=== PATIENT | female | born 1950 | race Caucasian/White ===

== ENCOUNTER 2018-01-22 00:24 | Outpatient (CLI) | payer MEDICARE, BC, SELFPAY ==
--- NOTE | 2018-01-22 14:52 | DI.RAD_ITS ---
SYMPTOMS/DIAGNOSIS: PREVENTATIVE CARE, Z00.00, ASYMPTOMATIC POSTMENOPAUSAL STATUS, Z78.0 DEXA SCAN WITH COLBY: The COLBY image shows no evidence of compression fractures. The bone mineral density measurements of the lumbar spine correspond to a total T score of -1.7, consistent with osteopenia. The bone mineral density measurements of the left hip correspond to a total T score of -1.1 and a femoral T score of -1.8, consistent with osteopenia. The left forearm bone mineral density measurements correspond to a total T score of -0.4 and a T score of the distal third of -0.9, in the normal range. IMPRESSION: Osteopenia of the lumbar spine and left hip. Normal bone mineral density of the left forearm.
--- NOTE | 2018-01-22 15:28 | DI.MAMMO_ITS ---
SYMPTOMS/DIAGNOSIS: SCREENING, Z12.39 MAMMOGRAMS: Mammograms were interpreted according to the usual protocol including computer analysis with CAD system, tomosynthesis and C view imaging. Comparison is with the prior examinations. No suspicious masses or microcalcifications are seen. There has been no significant change compared to the prior examinations. IMPRESSION: No definite evidence for malignancy. Yearly mammography is recommended. Category 1. Breast density C. MQSA ASSESSMENT OF FINDINGS: Negative. Category 1. Patient will receive a letter notifying them of these results. Bi-RADS category C. The breasts are heterogeneously dense, which may obscure small masses.
== END 2018-01-22 00:44 ==
PROVIDERS: PCP Family Medicine; Visit Provider Family Medicine
DX: Z12.31 Encounter for screening mammogram for malignant neoplasm of breast (principal); M85.88 Other specified disorders of bone density and structure, other site; Z78.0 Asymptomatic menopausal state
CPT/HCPCS: 77063; 77067; 77080

== ENCOUNTER 2018-11-29 11:34 | Outpatient (REF) | payer OTHER, MEDICARE, SELFPAY ==
--- NOTE | 2018-11-29 10:40 | PAPFT_PTH ---
PATIENT: Anita Maloney LOC: [facility] U#:[id number] AGE/SX: 68/F ROOM: RE11/29/[address]: Lucia Lynch : 1950 BED: DIS: 11/29/2018 SPEC #: [id number] RECD: 11/29/18 18:05 STATUS: CHICO REQ #: [id number] DESIREE: 11/29/18 10:[address]: Lucia Lynch DEPT: [facility] Cytology RECD BY: Angeli Nugent Tissues: 1 - CX/ENDOCX FOR PAP SMEARS Procedures: PAP THIN PREP/UVM Screening HPV DNA PROBE Comments: [id number]
== END 2018-11-29 11:54 ==
LOC: NCHCN 11:34
PROVIDERS: PCP Family Medicine; Visit Provider Family Medicine
DX: Z12.4 Encounter for screening for malignant neoplasm of cervix (principal); Z11.51 Encounter for screening for human papillomavirus (HPV)
CPT/HCPCS: 88142; 87624

== ENCOUNTER 2019-01-31 02:22 | Outpatient (CLI) | payer OTHER, SELFPAY ==
--- NOTE | 2019-01-31 15:31 | DI.MAMMO_ITS ---
EXAM: MAMMO SCREENING CLINICAL HISTORY: SCREENING, Z12.31, PREVENTATIVE HEALTH CARE, Z00.00, FIBROCYSTIC BREAST DISEASE, N 60.19 TECHNIQUE: Mammograms were interpreted according to the usual protocol including computer analysis w [employer] CAD system, tomosynthesis and C-view imaging. COMPARISON: Comparison with multiple previous examinations including January 2018 FINDINGS: Breasts are heterogeneously dense. There are multiple areas of nodularity seen bilaterally. Compari son with multiple previous examinations including January 2018 shows increased prominence of areas o f nodularity or new nodularity in both breasts; these all appear well circumscribed and are less than 1 cm in diameter, but should be evaluated ultrasonographically. CC view of the left breast shows no dularity retroareolar. MLO view of the left breast shows nodularity supraareolar and retroareolar ab out 7 cm behind the nipple. MLO view of the right breast shows central areas of nodularity. IMPRESSION: Multiple new areas of nodularity of both breasts. Additional evaluation with breast ultrasound recomm ended. Category 0, breast density category C.
== END 2019-01-31 02:42 ==
PROVIDERS: PCP Family Medicine; Visit Provider Family Medicine
DX: Z12.31 Encounter for screening mammogram for malignant neoplasm of breast (principal); N60.11 Diffuse cystic mastopathy of right breast; N60.12 Diffuse cystic mastopathy of left breast; R92.8 Other abnormal and inconclusive findings on diagnostic imaging of breast
CPT/HCPCS: 77063; 77067

== ENCOUNTER 2019-02-03 08:26 | Outpatient (CLI) | payer OTHER, SELFPAY ==
--- NOTE | 2019-02-03 13:58 | DI.US_ITS ---
EXAM: US BREAST RT LIMITED CLINICAL HISTORY: F/U MAMMO, MULTIPLE AREAS OF NODULARITY TECHNIQUE: Ultrasound performed using standard protocol. The upper outer and upper inner quadrants of the right breast were evaluated sonographically. COMPARISON: Mammogram 01/31/2019 FINDINGS: There are several simple cysts seen within the right breast. No suspicious cystic or solid masses ar e seen sonographically. IMPRESSION: Multiple right breast simple cysts. No evidence for malignancy. Yearly mammography is recommended. BI-RADS Cat 2 - Benign Findings
--- NOTE | 2019-02-03 14:15 | DI.US_ITS ---
EXAM: US BREAST LT LIMITED CLINICAL HISTORY: F/U MAMMO, MULTIPLE AREAS OF NODULARITY TECHNIQUE: Ultrasound performed using standard protocol. The upper inner, upper outer and lower ou ter quadrants of the left breast were evaluated sonographically. COMPARISON: Mammogram 01/31/2019 FINDINGS: There are several simple cysts seen within the left breast. No suspicious cystic or solid masses are seen sonographically. IMPRESSION: Multiple left breast cysts. No evidence for malignancy. Yearly mammography is recommended. BI-RADS Cat 2 - Benign Findings
== END 2019-02-03 08:46 ==
PROVIDERS: PCP Family Medicine; Visit Provider Family Medicine
DX: Z12.31 Encounter for screening mammogram for malignant neoplasm of breast (principal); R92.8 Other abnormal and inconclusive findings on diagnostic imaging of breast; N60.11 Diffuse cystic mastopathy of right breast; N60.12 Diffuse cystic mastopathy of left breast
CPT/HCPCS: 76642

== ENCOUNTER 2019-11-20 01:32 | Outpatient (CLI) | payer OTHER, MEDICARE, SELFPAY ==
[2019-11-20 09:18] LABS: Calculated LDL 95 mg/dL (<100); Cholesterol 176 mg/dL (<200); Glucose 100 mg/dL (74-106); HDL Cholesterol 53 mg/dL (40-60); Triglyceride 142 mg/dL (<150)
[2019-11-20 09:50] LABS: Vitamin D 25 Total 25.7 ng/ml (30-100)
== END 2019-11-20 01:52 ==
PROVIDERS: PCP Family Medicine; Visit Provider Family Medicine
DX: R73.9 Hyperglycemia, unspecified (principal); M85.80 Other specified disorders of bone density and structure, unspecified site; Z00.00 Encounter for general adult medical examination without abnormal findings
CPT/HCPCS: 36415; 80061; 82306; 82947

== ENCOUNTER 2020-01-29 20:37 | Outpatient (REF) | payer SELFPAY ==
[2020-01-31 09:47] LABS: COVID-19 RT-PCR Result NEGATIVE (Negative)
== END 2020-01-29 20:57 ==
LOC: NCHCN 20:37
PROVIDERS: Nurse Practitioner Family; PCP Family Medicine; Visit Provider Family Medicine
DX: Z11.59 Encounter for screening for other viral diseases (principal)
CPT/HCPCS: U0003

== ENCOUNTER 2020-02-09 01:49 | Outpatient (CLI) | payer MEDICARE, BC, SELFPAY ==
--- NOTE | 2020-02-09 | DI.MAMMO_ITS ---
EXAM: MG MAMMO SCREENING CLINICAL HISTORY: SCREENING, Z12.39. TECHNIQUE: Bilateral full field digital CC and MLO mammographic images were obtained with 3D tomosyn thesis and utilizing computer aided detection (CAD). COMPARISON: Prior mammograms dating back to 2011, the most recent being January 2019. Prior breast ultrasound examination January 2019 was reviewed FINDINGS: Fibroglandular tissue is moderately dense, this decreasing sensitivity mammogram for finding in under lying lesions. In the right breast there is a nodule in the upper outer quadrant which has increased in size, presen tly measuring 8 x 6 millimeters. Ultrasound recommended. Also nodular densities in the left breast noted. There is a microcalcification group located in the left breast, best seen on the CC view loca samina 6 centimetres in from the nipple, unchanged from previous studies and therefore benign. Another microcalcification group located laterally in the left breast is also unchanged from prior studies an d therefore benign. There is no significant architectural distortion nor skin thickening-retraction. IMPRESSION: Moderately dense fibroglandular tissue. Bilateral nodules. Recommend bilateral complete breast ultr asound. Multiple stable appearing microcalcification groups bilaterally. BI-RADS Category 0 - Assessment Incomplete: Need additional imaging evaluation Breast Density - Category C - Heterogeneously dense Breast density Category C or D implies that the patient has dense breast tissue. Dense breast tissue can make it harder to find cancer on a mammogram. Dense breast tissue is also associated with an incr eased risk of breast cancer. This information about the result of the mammogram report was provided to the patient to raise their awareness. Use this report when you speak with the patient about their risks for breast cancer, which includes their family history. At that time, you may recommend additional screening tests (Ultrasoun d or MRI) as these tests may add significant information. A negative radiographic report should not delay biopsy if a dominant or clinically suspicious mass is present. Up to ten percent of cancers are not identified on mammography. A negative report may reinforce clinical impression. Adenosis and dense breasts may obscure an underlying neoplasm. False positive reports average 6 to 10%. Patient will receive a letter notifying them of these results.
== END 2020-02-09 02:09 ==
PROVIDERS: PCP Family Medicine; Visit Provider Family Medicine
DX: Z12.31 Encounter for screening mammogram for malignant neoplasm of breast (principal); R92.8 Other abnormal and inconclusive findings on diagnostic imaging of breast
CPT/HCPCS: 77063; 77067

== ENCOUNTER 2020-02-18 03:12 | Outpatient (CLI) | payer MEDICARE, BC, SELFPAY ==
--- NOTE | 2020-02-18 | DI.US_ITS ---
EXAM: US BREAST RT COMPLETE CLINICAL HISTORY: F/U MAMMO, NODULE UOQ INCREASED IN SIZE. TECHNIQUE: Complete ultrasound of both breasts was performed incluing all 4 quadrants, the retroareo lar region, . COMPARISON: Prior mammograms were reviewed. Most recent mammogram 02/09/2020. The prior ultrasound examinations performed January 2019 were reviewed FINDINGS: Left breast: There are 2 adjacent microcysts seen at 12 o'clock position. Third microcyst also seen at this locat ion. At the 11 o'clock position there are 2 microcyst Min noted, 1 of which is hemorrhagic. At the 10 o'clock position there is a well-defined nodule measuring 4 x 3 millimeters, wider than radha l and most probably also hemorrhagic microcyst. No associated decreased through transmission. Recom mend six-month follow-up. Right breast: There multiple microcysts. A 3 millimeter microcysts at the 4 o'clock position is sept ated. Laterally there are 2 microcysts. The larger of these most probably corresponds to the findin g on the mammogram. IMPRESSION: Bilateral microcysts and hemorrhagic microcysts. Six-month follow-up recommended to re-evaluate find ing at 10-11 o'clock position of the left breast.. This is probably also hemorrhagic microcyst but a ppears somewhat different in the other microcysts. BI-RADS Category 3 - 6 month - Probably Benign Finding: Recommend follow-up mammography in 6 months Breast Density - Category C - Heterogeneously dense Breast density Category C or D implies that the patient has dense breast tissue. Dense breast tissue can make it harder to find cancer on a mammogram. Dense breast tissue is also associated with an incr eased risk of breast cancer. This information about the result of the mammogram report was provided to the patient to raise their awareness. Use this report when you speak with the patient about their risks for breast cancer, which includes their family history. At that time, you may recommend additional screening tests (Ultrasoun d or MRI) as these tests may add significant information. A negative radiographic report should not delay biopsy if a dominant or clinically suspicious mass is present. Up to ten percent of cancers are not identified on mammography. A negative report may reinforce clinical impression. Adenosis and dense breasts may obscure an underlying neoplasm. False positive reports average 6 to 10%. Patient will receive a letter notifying them of these results. Wider than taller measuring 4 x 3 mil limeters are multiple microcysts. At 4 o'clock position there is a 3 millimeter
--- NOTE | 2020-02-18 | DI.US_ITS ---
EXAM: US BREAST LT COMPLETE CLINICAL HISTORY: F/U MAMMO, NODULAR DENSITIES LT BREAST. TECHNIQUE: Limited ultrasound of the right breast was performed. COMPARISON: Prior mammograms were reviewed. FINDINGS: See other dictation which describes both breasts. IMPRESSION: Appropriate follow-up is . Category: Density: Breast density Category C or D implies that the patient has dense breast tissue. Dense breast tissue can make it harder to find cancer on a mammogram. Dense breast tissue is also associated with an incr eased risk of breast cancer. This information about the result of the mammogram report was provided to the patient to raise their awareness. Use this report when you speak with the patient about their risks for breast cancer, which includes their family history. At that time, you may recommend additional screening tests (Ultrasoun d or MRI) as these tests may add significant information. A negative radiographic report should not delay biopsy if a dominant or clinically suspicious mass is present. Up to ten percent of cancers are not identified on mammography. A negative report may reinforce clinical impression. Adenosis and dense breasts may obscure an underlying neoplasm. False positive reports average 6 to 10%. Patient will receive a letter notifying them of these results.
== END 2020-02-18 03:32 ==
PROVIDERS: PCP Family Medicine; Visit Provider Family Medicine
DX: N60.02 Solitary cyst of left breast (principal); N60.01 Solitary cyst of right breast
CPT/HCPCS: 76642

== ENCOUNTER 2020-02-26 12:37 | Outpatient (REF) | payer SELFPAY ==
[2020-02-27 15:34] LABS: COVID-19 RT-PCR Result NEGATIVE (Negative)
== END 2020-02-26 12:57 ==
LOC: NCHCN 12:37
PROVIDERS: PCP Family Medicine; Visit Provider Nurse Practitioner Family
DX: Z11.52 Encounter for screening for COVID-19 (principal)
CPT/HCPCS: U0003

== ENCOUNTER 2020-04-01 14:09 | Outpatient (REF) | payer MEDICARE, BC, SELFPAY ==
[2020-04-01 15:46] LABS: Glucose 115 mg/dL (74-106)
[2020-04-01 16:13] LABS: Vitamin D 25 Total 57.7 ng/ml (30-100)
== END 2020-04-01 14:10 | disposition home or self-care (01) ==
LOC: NCHCN 14:09
PROVIDERS: PCP Family Medicine; Visit Provider Family Medicine
DX: R73.9 Hyperglycemia, unspecified (principal); E55.9 Vitamin D deficiency, unspecified
CPT/HCPCS: 82306; 82947

== ENCOUNTER 2020-04-27 01:28 | Outpatient (CLI) | payer MEDICARE, BC, SELFPAY ==
--- NOTE | 2020-04-27 12:40 | DI.RAD_ITS ---
EXAM: XR FOOT RT COMPLETE CLINICAL HISTORY: RT HEEL PAIN M79.671,STEPPED ON PIECE OF GLASS,? FOREIGN BODY TECHNIQUE: COMPARISON: No exams were available for comparison FINDINGS: Three views were obtained. No bony abnormality seen. No foreign body identified in the reported reg ion of symptomatology in the hind foot/heel. Note is made of deformity of the medial sesamoid or sesamoids, clinical correlation requested regardi ng any symptoms in the region of the MTP joint, if clinically indicated additional radiographic views of the region of the 1st MTP joint or MTP joint CT could be obtained. IMPRESSION: RADIATION DOSE DELIVERED: Total DLP
== END 2020-04-27 01:48 ==
PROVIDERS: PCP Family Medicine; Visit Provider Family Medicine
DX: M79.671 Pain in right foot (principal)
CPT/HCPCS: 73630

== ENCOUNTER 2020-08-18 01:49 | Outpatient (CLI) | payer MEDICARE, BC, SELFPAY ==
--- NOTE | 2020-08-18 | DI.US_ITS ---
Exam(s) US BREAST LT LIMITED EXAM: US BREAST LT LIMITED CLINICAL HISTORY: F/U MAMMO, R92.8, INCONCLUSIVE, DENSE TISSUE TECHNIQUE: Ultrasound left breast performed using standard protocol. COMPARISON: US US BREAST LT LIMITED from 02/03/2019 US US BREAST LT COMPLETE from 02/18/2020 FINDINGS: There has been no significant change in the cystic lesions in the left breast. The hypoechoic nodule at the 10 o'clock position 3 cm from the nipple appears stable. No new suspicious cystic or solid m asses are seen sonographically. IMPRESSION: 1. No change in appearance of the left breast lesions since 02/18/2020. 2. Six-month follow-up left breast ultrasound is recommended for re-evaluation. 3. Findings were discussed with the patient on the date of the examination. BI-RADS Category 3 - 6 month - Probably Benign Finding: Recommend follow-up imaging in 6 months DATA REPOSITORY:
== END 2020-08-18 02:09 ==
PROVIDERS: PCP Family Medicine; Visit Provider Family Medicine
DX: R92.8 Other abnormal and inconclusive findings on diagnostic imaging of breast (principal)
CPT/HCPCS: 76642

== ENCOUNTER 2020-10-21 02:57 | Outpatient (CLI) | payer MEDICARE, BC, SELFPAY ==
[2020-10-21 13:43] LABS: HCT 40.3 % (36.0-46.0); HGB 13.3 g/dL (11.2-15.7); MCH 31.3 pg (27.0-33.0); MCV 94.8 fL (80-95); MPV 9.8 fL (8.0-11.0); Platelet Count 254 10^3/uL (130-400); RBC 4.25 10^6/uL (3.93-5.22); RDW 12.3 % (11.7-14.6); RDW-SD 42.9 fL; WBC 9.28 10^3/uL (4.4-10.8)
[2020-10-21 14:14] LABS: Anion Gap 8.8 mmol/L (3-11); BUN 16 mg/dL (7-18); CO2 27.2 mmol/L (21.0-32.0); CREATININE 0.8 mg/dL (0.55-1.02); Calcium 9.7 mg/dL (8.5-10.1); Chloride 101 mmol/L (98-107); Glucose 88 mg/dL (74-106); Potassium 4.7 mmol/L (3.5-5.1); Sodium 137 mmol/L (136-145)
[2020-10-22 17:37] LABS: Hemoglobin A1C 5.4 % (<5.7)
== END 2020-10-21 02:58 | disposition home or self-care (01) ==
LOC: LBO 02:57
PROVIDERS: PCP Family Medicine; Visit Provider Family Medicine
DX: R03.0 Elevated blood-pressure reading, without diagnosis of hypertension (principal); R73.03 Prediabetes
CPT/HCPCS: 36415; 80048; 85027; 83036

== ENCOUNTER 2020-12-30 16:33 | Outpatient (REF) | payer MEDICARE, BC, SELFPAY ==
[2020-12-31 01:41] LABS: COVID-19 RT-PCR UVMMC Result Negative (Negative)
== END 2020-12-30 16:34 | disposition home or self-care (01) ==
LOC: NCHCN 16:33
PROVIDERS: PCP Family Medicine; Visit Provider Family Medicine
DX: R05.1 Acute cough (principal)
CPT/HCPCS: U0003; U0005

== ENCOUNTER 2021-01-11 03:14 | Outpatient (CLI) | payer MEDICARE, BC, SELFPAY ==
[2021-01-11 18:01] LABS: Anion Gap 8.8 mmol/L (3-11); BUN 19 mg/dL (7-18); CO2 29.2 mmol/L (21.0-32.0); CREATININE 0.9 mg/dL (0.55-1.02); Calcium 8.9 mg/dL (8.5-10.1); Chloride 100 mmol/L (98-107); Glucose 82 mg/dL (74-106); Sodium 138 mmol/L (136-145); TSH (W/Ref FT4) 1.58 uIU/mL (0.36-3.74); Vitamin B12 489 pg/mL (193-986)
[2021-01-13 10:27] LABS: HIV-1/2 Ag & Ab Screen Negative (Negative)
[2021-01-13 11:01] LABS: Hepatitis C Ab w Rflx HCV PCR Negative (Negative)
== END 2021-01-11 03:15 | disposition home or self-care (01) ==
LOC: LBO 03:15
PROVIDERS: PCP Family Medicine; Visit Provider Family Medicine
DX: R41.3 Other amnesia (principal); R03.0 Elevated blood-pressure reading, without diagnosis of hypertension; Z00.00 Encounter for general adult medical examination without abnormal findings; Z11.4 Encounter for screening for human immunodeficiency virus [HIV]; Z11.59 Encounter for screening for other viral diseases
CPT/HCPCS: 36415; 80048; 86803; 87389; 82607; 84443

== ENCOUNTER 2021-01-31 15:39 | Outpatient (REF) | payer MEDICARE, BC, SELFPAY ==
[2021-02-01 20:35] LABS: COVID-19 RT-PCR UVMMC Result Negative (Negative)
== END 2021-01-31 15:40 | disposition home or self-care (01) ==
LOC: NCHCN 15:39
PROVIDERS: PCP Family Medicine; Visit Provider Family Medicine
DX: Z20.822 Contact with and (suspected) exposure to COVID-19 (principal)
CPT/HCPCS: U0003; U0005

== ENCOUNTER 2021-02-16 01:49 | Outpatient (CLI) | payer MEDICARE, BC, SELFPAY ==
--- NOTE | 2021-02-16 08:00 | DI.US_ITS ---
Exam(s) MAMMO SCREENING US BREAST LT LIMITED EXAM: MAMMO SCREENING CLINICAL HISTORY: SCREENING, Z12.39 TECHNIQUE: Mammograms were interpreted according to the usual protocol including computer analysis w [employer] CAD system, tomosynthesis and C-view imaging. COMPARISON: FINDINGS: Today's bilateral mammogram and left breast ultrasound are interpreted in conjunction. The breasts a re heterogeneously dense. No dominant mass or clumped microcalcification is identified in either cameron ast. The current examination is compared with previous examinations including January 2020 and ther e has been no gross interval change in appearance comparison with the prior studies. Left breast ultrasound was also performed to follow a few small cystic and mixed echogenicity nodules from the 11 o'clock to 12 o'clock position in the breast. These all appear unchanged from prior ult rasound examination of August 18, these are all avascular and well-circumscribed, cystic with some int ernal echoes decreased from prior examination, and with increased posterior through transmission. No suspicious lesion identified ultrasonographically. IMPRESSION: No specific evidence of malignancy at this time. Routine screening mammographic examinations are sug gested at yearly intervals in this age group according to the ACS ACR guidelines. Additionally, I would suggest that follow-up breast ultrasound of the left breast be performed in 12 months to confirm the stability of likely benign left breast nodules as described above. BI-RADS Category 2 - Benign Findings Breast Density - Category C - Heterogeneously dense
== END 2021-02-16 02:09 ==
PROVIDERS: PCP Family Medicine; Visit Provider Family Medicine
DX: Z12.31 Encounter for screening mammogram for malignant neoplasm of breast (principal); R92.8 Other abnormal and inconclusive findings on diagnostic imaging of breast; N60.12 Diffuse cystic mastopathy of left breast
CPT/HCPCS: 76642; 77063; 77067

== ENCOUNTER 2021-11-09 03:22 | Outpatient (CLI) | payer MEDICARE, BC, SELFPAY ==
[2021-11-09 08:47] LABS: Calculated LDL 131 mg/dL (<100); Cholesterol 216 mg/dL (<200); HDL Cholesterol 54 mg/dL (40-60); Triglyceride 158 mg/dL (<150)
== END 2021-11-09 03:23 | disposition home or self-care (01) ==
LOC: LBO 03:23
PROVIDERS: PCP Family Medicine; Visit Provider Family Medicine
DX: I10 Essential (primary) hypertension (principal); R63.5 Abnormal weight gain; Z13.220 Encounter for screening for lipoid disorders
CPT/HCPCS: 36415; 80061; 84443

== ENCOUNTER → 2021-11-23 08:49 | Outpatient (BNVA) | payer MEDICARE, BC, SELFPAY | PROVIDERS: PCP Family Medicine; Referring Provider Family Medicine; Visit Provider Surgery | DX: Z86.010 Personal history of colon polyps (principal); Z12.11 Encounter for screening for malignant neoplasm of colon ==

== ENCOUNTER 2021-12-08 07:08 | Day surgery (SDC) | payer MEDICARE, BC, SELFPAY ==
--- NOTE | 2021-12-07 21:32 | PDOC.DSDIS_ITS ---
Date of service: 12/08/21 Time of Service: 08:14 Discharge Plan Disposition Patient Disposition: HOME Condition: Good Discharge Details Reason For Visit: Screening colonoscopy routine [facility], [place] Attending Provider: Jerad Holman Primary Care Provider: Lucia Lynch Home Meds and New Rx's Prescriptions: Continued irbesartan 150 mg tablet 150 mg PO DAILY lorazepam [Ativan] 0.5 MG tablet 0.5 mg PO PRN zolpidem [Ambien CR] 12.5 MG tablet,ext release multiphase 6.25 mg PO DAILY escitalopram oxalate 10 mg tablet 10 mg PO DAILY qkmjiom-scvmnwduz-iqny 333-133-8.3 mg tablet PO cholecalciferol (vitamin D3) 25 mcg (1,000 unit) capsule 25 mcg PO DAILY Discontinued polyethylene glycol 3350 17 gram/dose powder 238 g PO ONCE Qty: 238 0RF Rx Instructions: take per colonoscopy instructions bisacodyl [Dulcolax (bisacodyl)] 5 mg tablet,delayed release (DR/EC) 5 mg PO ONCE Qty: 4 0RF Rx Instructions: take per colonoscopy instructions Discharge Instructions Additional Instructions: 1. If tolerated, consume a soft, low fiber diet for 1-2 days. 2[address] Do not drive, drink alcohol, operate machinery, make critical decisions, or do activities that require coordination or balance for 24 hours. 3. Because air was put into your colon during the procedure, expelling air from your rectum (passing gas or farting) is normal. 4. You may not have a bowel movement for 1-3 days because of the colonoscopy prep. This is normal. 5. Go directly to the emergency room if you notice any of the following: Develop chills (warm to touch), or if you have a thermometer and your temperature is above 101 Difficulty breathing or difficultly swallowing Persistent vomiting Severe abdominal pain, other than gas cramps Severe chest pain Black, tarry stools Any bleeding ? exceeding one tablespoon 6. Call your physician if the site where your intravenous was started becomes red, swollen, painful, and warm to touch. 7. Your physician has reviewed your pre-procedure medications. Please continue to take those medications as previously ordered. You will be given specific information/education regarding any changes to your medications before leaving. Activity:: Activity as Tolerated Diet:: As Tolerated Discharge Orders Discharge Orders: Discharge Order (Routine); Ordered 12/07/21 Ordered By: Jerad Holman DS: Diagnosis Discharge Diagnosis (1) Screening for colon cancer: Status: Acute Asessment and Plan: Grossly, this colonoscopy was negative, but detailed examination was inadequate, and there is the possibility that subtle polyps were missed.
--- NOTE | 2021-12-07 21:34 | W.COLOREPORT ---
Date of service: 12/08/21 Time of Service: 08:45 Colonoscopy Report Date of procedure: 12/08/21 Pre-op diagnosis general: Screening colonoscopy routine health maintenance Post-op diagnosis procedure note: same Procedure: screening colonoscopy Surgeon: Jerad Holman Anesthesia Type: General:No Airway Estimated blood loss (mL): 0 Pathology: none sent Complications: Other (Mild intoleranace of anesthetic ) Disposition: PACU Indications: Screening colonoscopy Prep: Miralax/Dulcolax Procedure Start Time: 08:21 Procedure End Time: 08:34 Retraction Time: 9 Findings: Grossly negative screening colonoscopy Procedure Description: After the induction of monitored anesthetic care, and with the patient in left lateral decubitus position, I began by performing an external anorectal exam.? Perineum and skin were normal, as was the anal verge.? There was no evidence of external hemorrhoids.? Next, I performed a digital rectal exam.? I did not appreciate any abnormal findings.? Next, I advanced a colonoscope into the rectal vault.? I performed retroflexion.? I did not see signs of pathologic internal hemorrhoids.? Using insufflation, I then advanced the colonoscope beyond the rectal folds and into the sigmoid colon before advancing towards the cecum.? The quality of the prep was excellent.? The scope was noted to be in the cecum by identification of the ileocecal valve and appendiceal orifice.? I then began withdrawing the colonoscope using repeated irrigation as necessary for full evaluation of the colonic mucosa. During retraction, the patient did experience some coughing. There was mild posttussive emesis that was immediately recognized with the patient in the left lateral decubitus positioning. Suction was used to clear the oropharynx. In order to minimize the risk of aspiration, I expedited the retraction of the scope. Once the scope was withdrawn to the level of the rectum, great care was taken to examine portions of the rectal folds.? Evaluation was not optimal, but grossly, the colon appeared normal. There is a possibility that subtle polyps were missed. Finally, the scope was withdrawn and the patient was brought to the same-day surgery recovery unit as the anesthetic wore off. ?The findings and instructions were shared with the patient prior to discharge. Given the expedited nature of the retraction, my overall recommendation would be for another colonoscopy in 5 years if Anita decides to do so.
[2021-12-08] VITALS (7 sets, daily range): BP systolic 121–160; BP diastolic 70–84; PULSE 61–86; RESP 15–18; TEMP 36.5–36.8; O2SAT 93–97; BMI 31.8
--- NOTE | 2021-12-08 06:59 | ANES.PREOP_ITS ---
General Info Date of Service Date Performed: 12/08/21 Height: 5 ft Weight: 74.1 kg Body Mass Index (BMI): 31.8 Surgical Procedure: Operation Date: 12/08/21 08:20 Proposed Procedure Side Surgeon justin Holman MD Meds Allergies and Home Medications Allergies Allergy/AdvReac Type Severity Reaction Status Date / Time pomegranate Allergy Severe Throat Verified 12/08/21 07:14 closes estradiol patch AdvReac Intermediate burn Uncoded 12/06/21 14:22 Home Medication Medication Instructions Recorded Ambien CR 12.5 mg tablet,extended 6.25 mg PO DAILY 01/13/13 release (zolpidem) Ativan 0.5 mg tablet (lorazepam) 0.5 mg PO PRN 01/13/13 onpmlry-turfszdxu-auuu 333 mg-133 tab PO 09/29/21 mg-8.3 mg tablet cholecalciferol (vitamin D3) 25 25 mcg PO DAILY 09/29/21 mcg (1,000 unit) capsule escitalopram oxalate 10 mg tablet 10 mg PO DAILY 09/29/21 irbesartan 150 mg tablet 150 mg PO DAILY 11/23/21 Current Visit Medications: Current Medications Generic Name Dose Route Start Last Admin Trade Name Freq PRN Reason Stop Dose Admin Hyoscyamine Sulfate 0.125 mg 12/07/21 21:34 Hyoscyamine 0.125 Mg Sl/Oral/Chew SL DIRECTED PRN Ringer's Solution 1,000 mls @ 80 mls/hr 12/08/21 06:00 IV 12/08/21 23:59 [facility] IV Miscellaneous Supplies 1 each 12/08/21 06:00 Iv Access IV 12/08/21 23:59 DIRECTED SAMMY Ondansetron HCl 4 mg 12/07/21 21:34 Ondansetron 4 Mg/2 Ml Vial IVP Q4H PRN PRN Nausea / Vomiting Sodium Chloride 0 ml 12/08/21 06:00 Normal Saline Flush 10 Ml Syr IV 12/08/21 23:59 PRN PRN Sodium Chloride 0 ml 12/08/21 06:00 Normal Saline 10 Ml Vial IJ 12/08/21 23:59 DIRECTED PRN Sterile Water 0 ml 12/08/21 06:00 Water,Injection,Sterile 10 Ml Vial IJ 12/08/21 23:59 DIRECTED PRN PFSH Active Problems Active Problems: Problem Status Onset Code Screening for colon cancer Z12.11 Memory deficit R41.3 Left shoulder pain M25.512 Benign essential hypertension I10 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 Vitamin D deficiency E55.9 Abnormal mammogram R92.8 Left hip pain M25.552 Obesity E66.9 Medical History Medical History Chronic insomnia Fibrocystic breast disease Hypertension Insomnia Menopausal syndrome (hot flashes) Osteopenia Seborrheic keratoses Tubular adenoma of colon (10/03/16) Surgical History Surgical History Colonoscopy - MAC (10/03/16) Tobacco Smoking/Tobacco Use Status: Former Tobacco Use Alcohol Alcohol Intake: current Alcohol intake frequency: holidays/special occasions only Alcohol type: hard liquor Substance Use Substance use: Never Substance use type: does not use Vital Signs and Lab Results Lab Results Blood Type / Crossmatch: No Data to Display Complete Blood Count: No Data to Display Complete Metabolic Panel: No Data to Display Liver Function Panel: No Data to Display Coagulation Panel: No Data to Display Cardiac Panel: No Data to Display Arterial Blood Gas: No Data to Display Venous Blood Gas: No Data to Display Pancreas Panel: No Data to Display Thyroid Panel: Thyroid Stimulating Hormone (TSH) 2.50 uIU/mL (0.36-3.74) 11/09 07:27 Infectious Disease: No Data to Display Blood Cultures: No Data to Display Toxicology Panel: No Data to Display Anesthesia Assessment and Plan Anesthesia History Personal History: No History of Anesthesia Complications Family History: No Family History of Anesthesia Complications Exercise Tolerance Exercise Tolerance: Metabolic Equivalents>4 Pertinent Negatives Pertinent Negatives: No Symptoms of GERD, No Major Cardiovascular Symptoms or Complaints, No Major Pulmonary Symptoms or Complaints and No History of CVA/TIA Cardiac & Pulmonary Exam Cardiac Exam: Normal S1/S2 Heart Sounds Pulmonary Exam: Clear Bilateral Breath Sounds Implantable Cardiac Device Does patient have a Pacemaker or an ICD?: No Airway Exam Known Difficult Airway: No Mallampati Class: 2 Mouth Opening: Normal (> 3cm) Thyromental Distance: Greater than 3 cm Neck Range of Motion: Full ROM Neck Circumference: Normal Teeth Condition: Normal Dentition ASA Classification ASA Score: ASA 2 Emergency Case?: No NPO Status NPO Status: NPO Clears >2 hours, Solids >8 hours Anesthesia Plan Resuscitation Status: Full Code Anesthesia Technique: General Anesthesia Airway Planned: Natural Airway Monitors Used: Standard Monitors
[2021-12-08] MEDS: Lactated Ringers 1,000 ML 80 ML IV (07:50)
--- NOTE | 2021-12-08 09:36 | W.ANESPOSTOP ---
Postoperative Evaluation Date, Time and Location Date Performed: 12/08/21 Time Performed: 09:36 Patient Location: Day Surgery Unit Vital Signs Most Recent Imported Vital Signs: Most Recent Vital Signs Temp Pulse Resp BP Pulse Ox 36.7 C 61 18 158/73 H 96 12/08/21 09:24 12/08/21 09:24 12/08/21 09:24 12/08/21 09:24 12/08/21 09:24 Pain Score Most Recent Pain Score: Most Recent Pain Score Pain Level 2 12/08/21 09:24 Assessment Mental Status: Awake (Alert & Oriented to Patient Baseline) Airway and Respiratory Function: Patent airway with normal (patient baseline) respiratory exam Cardiovascular Function: Hemodynamically Stable Hydration Status: Adequately Hydrated Nausea & Vomiting: No Nausea or Vomiting Pain: Pt. Denies Any Pain Peripheral Nerve Block: Patient did not receive a nerve block Teaching Patient Teaching: Other (Discussed emesis episode during case today. Answered patient questions. All boyle clear to auscultation. Patient aware of signs and symptoms to seek emergency care. )
== END 2021-12-08 09:40 | disposition home or self-care (01) ==
PROVIDERS: PCP Family Medicine; Visit Provider Surgery
PROC: 0DJD8ZZ Inspection of Lower Intestinal Tract, Via Natural or Artificial Opening Endoscopic (ICD-10-PCS; CPT 45378; principal; 2021-12-08 08:15)
DX: Z12.11 Encounter for screening for malignant neoplasm of colon (principal); Z86.010 Personal history of colon polyps
CPT/HCPCS: G0105

== ENCOUNTER 2021-12-09 02:15 | Outpatient (CLI) | payer MEDICARE, BC, SELFPAY ==
[2021-12-09 15:11] LABS: Anion Gap 8.2 mmol/L (3-11); BUN 16 mg/dL (7-18); CO2 28.8 mmol/L (21.0-32.0); CREATININE 0.9 mg/dL (0.55-1.02); Calcium 9.4 mg/dL (8.5-10.1); Chloride 102 mmol/L (98-107); Estimated GFR 68.77 (mL/min/1.73m2); Glucose 99 mg/dL (74-106); Sodium 139 mmol/L (136-145)
== END 2021-12-09 02:16 | disposition home or self-care (01) ==
LOC: LBO 02:15
PROVIDERS: PCP Family Medicine; Visit Provider Family Medicine
DX: I10 Essential (primary) hypertension (principal)
CPT/HCPCS: 36415; 80048

== ENCOUNTER 2022-02-20 02:41 | Outpatient (CLI) | payer MEDICARE, BC, SELFPAY ==
--- NOTE | 2022-02-20 | DI.MAMMO_ITS ---
Exam(s) MAMMO SCREENING EXAM: MAMMO SCREENING CLINICAL HISTORY: SCREENING FOR BREAST CANCER Z12.39 TECHNIQUE: Mammograms were interpreted according to the usual protocol including computer analysis w Sw[employer] CAD system, tomosynthesis and C-view imaging. COMPARISON: 2012 through 2021 FINDINGS: The breasts are composed of heterogeneously dense fibroglandular densities, Breast Density category C . No suspicious masses or suspicious microcalcifications are seen. Multiple bilateral areas of nodular ity are again noted. Vascular calcifications are present. No skin thickening or abnormal axillary lymph nodes are seen. There has been no significant change from prior exams. IMPRESSION: BI-RADS Cat 2 - Benign Findings Yearly screening mammography is recommended. Breast Density Category C, heterogeneously Dense. The mammogram demonstrates the patient's breast tissue is dense. Dense breast tissue is very common a nd is not abnormal but dense breast tissue can make it harder to find cancer on a mammogram. Also, de nse breast tissue may increase breast cancer risk. This information about the result of the mammogram report was provided to the patient to raise their awareness. Use this report when you speak with the patient about their risks for breast cancer, which includes their family history. At that time, you may recommend additional screening tests (Ultrasound or MRI) as they might be useful based on their r isk. A negative radiographic report should not delay biopsy if a dominant or clinically suspicious mass is present. Up to ten percent of cancers are not identified on mammography. A negative report may reinforce clinical impression. Adenosis and dense breasts may obscure an underlying neoplasm. False positive reports average 6 to 10%.
== END 2022-02-20 03:01 ==
LOC: DI 02:41
PROVIDERS: PCP Family Medicine; Visit Provider Family Medicine
DX: Z12.31 Encounter for screening mammogram for malignant neoplasm of breast (principal)
CPT/HCPCS: 77063; 77067

== ENCOUNTER 2022-04-27 02:44 | Outpatient (CLI) | payer MEDICARE, BC, SELFPAY ==
[2022-04-27 08:38] LABS: Calculated LDL 138 mg/dL (<100); Cholesterol 245 mg/dL (<200); HDL Cholesterol 63 mg/dL (40-60); Triglyceride 224 mg/dL (<150)
== END 2022-04-27 02:45 | disposition home or self-care (01) ==
LOC: LBO 02:44
PROVIDERS: PCP Family Medicine; Visit Provider Family Medicine
DX: I10 Essential (primary) hypertension (principal); E78.5 Hyperlipidemia, unspecified
CPT/HCPCS: 36415; 80061

== ENCOUNTER 2022-08-29 16:09 | Outpatient (REF) | payer MEDICARE, BC, SELFPAY | END 2022-08-29 16:10 | disposition home or self-care (01) | LOC: NCHCN 16:09 | PROVIDERS: PCP Family Medicine; Visit Provider Physician Assistant | DX: R30.0 Dysuria (principal) | CPT/HCPCS: 87086 ==

== ENCOUNTER → 2022-10-30 16:48 | Outpatient (CLI) | payer MEDICARE, BC, SELFPAY ==
--- NOTE | 2022-10-30 | DI.RAD_ITS ---
Exam(s) XR HIP RT COMPLETE AP PELVIS EXAM: XR HIP RT COMPLETE AP PELVIS CLINICAL HISTORY: RT HIP PAIN, M25.551. TECHNIQUE: 2D digital imaging was performed of the right hip. Two images were obtained. AP pelvis a nd lateral right hip views were obtained. COMPARISON: No exams were available for comparison FINDINGS: BONES: No acute fracture is present. No bony destructive lesion is seen. JOINTS: No dislocation present. There is sclerosis and mild erosive change at the symphysis pubis con sistent with osteitis pubis. There is also sclerosis around the sacroiliac joints, right greater hope n left suggesting sacroiliitis. There is some widening of the sacroiliac joints particularly on the right suggesting arose of change. No ankylosis is seen. The hips are well maintained apart from mil d joint space narrowing. SOFT TISSUE: Normal. IMPRESSION: 1. Mild bilateral joint space narrowing of the hips. 2. Osteitis pubis and sacroiliitis. This can be seen with inflammatory arthritic disease. Please co rrelate clinically. DATA REPOSITORY: RADIATION DOSE DELIVERED:
--- NOTE | 2022-10-30 11:22 | DI.US_ITS ---
Exam(s) US PELVIS TRANSVAGINAL EXAM: US PELVIS TRANSVAGINAL CLINICAL HISTORY: RLQ PAIN, R10.31 TECHNIQUE: Transabdominal and transvaginal imaging was performed using standard protocol. COMPARISON: No exams were available for comparison FINDINGS: UTERUS: Anteverted. 6.2 x 3.0 x 3.1 cm cm Endometrium: 3 mm no focal abnormality visible. Small amount of fluid seen within endometrial cavi ty. Myometrium: Unremarkable. Cervix: Unremarkable. OVARIES: Right: Cyst or mass: None. Left: Cyst or mass: None. DOPPLER: Color: Symmetric and uniform flow to both ovaries. No hyperemia. CUL-DE-SAC: Free fluid: None. IMPRESSION: No endometrial thickening or focal abnormality. Small amount of fluid within the endometrial cavity. Unremarkable bilateral ovaries. DATA REPOSITORY:
== END ==
PROVIDERS: PCP Family Medicine; Visit Provider Family Medicine
DX: M16.0 Bilateral primary osteoarthritis of hip (principal); R10.31 Right lower quadrant pain
CPT/HCPCS: 73502; 76830; 76856

== ENCOUNTER 2022-11-08 02:51 | Outpatient (CLI) | payer MEDICARE, BC, SELFPAY ==
[2022-11-08 10:22] LABS: AST 33 U/L (15-37); C-Reactive Protein 0.51 mg/dL (0.0-0.3); Calculated LDL 83 mg/dL (<100); Cholesterol 157 mg/dL (<200); HDL Cholesterol 51 mg/dL (40-60); Triglyceride 116 mg/dL (<150)
[2022-11-08 12:27] LABS: Uric Acid 6.2 mg/dL (2.6-6.0)
[2022-11-10 15:21] LABS: HLA-B27 Result Negative
== END 2022-11-08 02:52 | disposition home or self-care (01) ==
LOC: LBO 02:51
PROVIDERS: PCP Family Medicine; Visit Provider Family Medicine
DX: E78.5 Hyperlipidemia, unspecified (principal); M25.551 Pain in right hip; R79.82 Elevated C-reactive protein (CRP); Z01.83 Encounter for blood typing
CPT/HCPCS: 36415; 80061; 86812; 84450; 84550; 86140

== ENCOUNTER 2022-12-15 10:25 | Day surgery (SDC) | payer MEDICARE, BC, SELFPAY ==
[2022-12-15 11:19] VITALS: BP 146/81; PULSE 72; RESP 16; TEMP 36.4; O2SAT 97
--- NOTE | 2022-12-15 11:31 | W.PREOPHP ---
Assessment and Plan Assessment and plan (1) Nuclear age-related cataract, right eye: Status: Acute Assessment and plan: Assessment: Visually significant cataract of the right eye. Plan: Cataract extraction with lens implantation of the right eye. (2) Cortical age-related cataract, right eye: Status: Acute Assessment and plan: Assessment: Visually significant cataract of the right eye. Plan: Cataract extraction with lens implantation of the right eye History of Present Illness History of Present Illness Chief Complaint: Progressive decreased vision, both eyes Narrative: The patient is a 72-year-old lady who presented with complaints of progressive decreased vision in both eyes at both distance and near. She notes significant difficulty reading and now has to use audiobooks. She can no longer see words on the TV and has severe glare when driving at night. On examination she was noted to have bilateral nuclear/cortical cataracts. The option of cataract surgery was offered to the patient and she felt she was significantly symptomatic that she wished to proceed. Review of Systems All systems reviewed & are unremarkable except as noted in HPI and below PFSH All Active Problems Nuclear age-related cataract, right eye (Acute) Cortical age-related cataract, right eye (Acute) Nuclear age-related cataract, left eye (Acute) Screening for colon cancer (Acute) Memory deficit (Acute) Left shoulder pain (Acute) Benign essential hypertension (Acute) Facial basal cell cancer (Acute) Abnormal mammogram (Acute) Left hip pain (Acute) Obesity (Chronic) Medical History Pain, joint, shoulder, left YULISA (obstructive sleep apnea) Vitamin D deficiency Hypertension Tubular adenoma of colon (10/03/16) Fibrocystic breast disease Chronic insomnia Seborrheic keratoses Menopausal syndrome (hot flashes) Osteopenia Insomnia Surgical History Colonoscopy - MAC (10/03/16) Social History Smoking/Tobacco Use Status: Former Tobacco Use Quit Date: 02/13/84 Smoking risk assessment performed?: Yes Alcohol Intake: current Alcohol Intake frequency: holidays/special occasions only Alcohol type: hard liquor Drug use: Never Substance use type: does not use Housing: house Do you feel safe at home: Yes Do you feel safe in your relationship?: Yes Meds Allergies and Home Medications Allergies Allergy/AdvReac Type Severity Reaction Status Date / Time pomegranate Allergy Severe Throat Verified 12/13/22 15:19 closes estradiol patch AdvReac Intermediate burn Uncoded 12/13/22 15:19 Home Medications Medication Instructions Recorded Confirmed Type Ambien CR 12.5 mg tablet,extended 6.25 mg PO DAILY 01/13/13 12/15/22 History release (zolpidem) Ativan 0.5 mg tablet (lorazepam) 0.5 mg PO PRN 01/13/13 12/15/22 History wzsikwe-xlcaoybaf-hkrd 333 mg-133 1 tab PO DAILY 09/29/21 12/15/22 History mg-8.3 mg tablet cholecalciferol (vitamin D3) 25 25 mcg PO DAILY 09/29/21 12/13/22 History mcg (1,000 unit) capsule escitalopram oxalate 10 mg tablet 10 mg PO DAILY 09/29/21 12/13/22 History irbesartan 150 mg tablet 150 mg PO DAILY 11/23/21 12/15/22 History amlodipine 5 mg tablet 20 mg PO DAILY 12/13/22 12/15/22 History atorvastatin 20 mg tablet 20 mg PO DAILY 12/13/22 12/15/22 History Exam Eyes Other: Most recent ocular examination revealed corrected visual acuity of 20/25 right eye, 20/25 left eye, but with significant glare disability, decreasing vision to 20/70 OD, 20/60 OS. Extraocular motility is normal, intraocular pressure is 16 OD, 17 OS. Slit-lamp examination is significant for pupils dilating to 5 mm OU. In the right eye there is a 1+ nuclear with 2+ cortical spoking. In the left eye there is 1+ nuclear cataract with 1+ posterior cortical cataract, extending centrally. Funduscopic examination reveals disc cupping of 0.2 OU with normal vessels, macula, peripheral retina and vitreous. Resp Auscultation: clear to auscultation bilaterally Cardio Rate: regular rate Rhythm: regular rhythm Results Last Vital Signs Temp 36.4 C L 12/15/22 11:19 Pulse 72 12/15/22 11:19 Resp 16 12/15/22 11:19 BP 146/81 H 12/15/22 11:19 Pulse Ox 97 12/15/22 11:19
[2022-12-15] MEDS: Tropicam./Phenyleph. (1/2.5%) 5 ML BTL OD ×3 (11:35→11:49)
--- NOTE | 2022-12-15 11:54 | W.ANESPRE ---
General Info Date of Service Date Performed: 12/15/22 Height: 5 ft Weight: 76.2 kg Body Mass Index (BMI): 32.8 Surgical Procedure: Operation Date: 12/15/22 14:10 Proposed Procedure Side Surgeon p Cataract Extraction with IOL Implant Right Kirill Tavarez MD Meds Allergies and Home Medications Allergies Allergy/AdvReac Type Severity Reaction Status Date / Time pomegranate Allergy Severe Throat Verified 12/13/22 15:19 closes estradiol patch AdvReac Intermediate burn Uncoded 12/13/22 15:19 Home Medication Medication Instructions Recorded Ambien CR 12.5 mg tablet,extended 6.25 mg PO DAILY 01/13/13 release (zolpidem) Ativan 0.5 mg tablet (lorazepam) 0.5 mg PO PRN 01/13/13 ealqupx-rjjdsfkfb-shuw 333 mg-133 1 tab PO DAILY 09/29/21 mg-8.3 mg tablet cholecalciferol (vitamin D3) 25 25 mcg PO DAILY 09/29/21 mcg (1,000 unit) capsule escitalopram oxalate 10 mg tablet 10 mg PO DAILY 09/29/21 irbesartan 150 mg tablet 150 mg PO DAILY 11/23/21 amlodipine 5 mg tablet 20 mg PO DAILY 12/13/22 atorvastatin 20 mg tablet 20 mg PO DAILY 12/13/22 Current Visit Medications: Current Medications Generic Name Dose Route Start Last Admin Trade Name Freq PRN Reason Stop Dose Admin Acetaminophen 1,000 mg 12/15/22 06:00 Acetaminophen 500 Mg Tab PO 01/14/23 05:59 Q4H PRN PRN Balanced Salt Solution 500 ml 12/15/22 06:00 Balanced Salt Soln.-Plus 500 Ml Bag OP 01/14/23 05:59 DIRECTED SAMMY Miscellaneous Medication 0 ml 12/15/22 06:00 Prednisolone 1%, Moxifloxacin 0.5%, Nepafenac 0.1% 5ml Btl OD 01/14/23 05:59 DIRECTED SAMMY Miscellaneous Medication 0 ml 12/15/22 06:00 12/15/22 11:49 Tropicam./Phenyleph. (1/2.5%) 5 Ml Btl OD 01/14/23 05:59 1 drp DIRECTED SAMMY Administration Tetracaine HCl 0 ml 12/15/22 06:00 Tetracaine 0.5% 4 Ml Btl OD 01/14/23 05:59 DIRECTED [facility] Active Problems Active Problems: Problem Status Onset Code Nuclear age-related cataract, right eye H25.11 Cortical age-related cataract, right eye H25.011 Nuclear age-related cataract, left eye H25.12 Screening for colon cancer Z12.11 Memory deficit R41.3 Left shoulder pain M25.512 Benign essential hypertension I10 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 Abnormal mammogram R92.8 Left hip pain M25.552 Obesity E66.9 Medical History Medical History Pain, joint, shoulder, left YULISA (obstructive sleep apnea) Vitamin D deficiency Hypertension Tubular adenoma of colon (10/03/16) Fibrocystic breast disease Chronic insomnia Seborrheic keratoses Menopausal syndrome (hot flashes) Osteopenia Insomnia Surgical History Surgical History Colonoscopy - MAC (10/03/16) Tobacco Smoking/Tobacco Use Status: Former Tobacco Use Alcohol Alcohol Intake: current Alcohol intake frequency: holidays/special occasions only Alcohol type: hard liquor Substance Use Substance use: Never Substance use type: does not use Vital Signs and Lab Results Vital Signs Most Recent Vital Signs in EMR: Most Recent Vital Signs Temp Pulse Resp BP Pulse Ox 36.4 C L 72 16 146/81 H 97 12/15/22 11:19 12/15/22 11:19 12/15/22 11:19 12/15/22 11:19 12/15/22 11:19 Lab Results Blood Type / Crossmatch: No Data to Display Complete Blood Count: No Data to Display Complete Metabolic Panel: No Data to Display Liver Function Panel: No Data to Display Coagulation Panel: No Data to Display Cardiac Panel: No Data to Display Arterial Blood Gas: No Data to Display Venous Blood Gas: No Data to Display Pancreas Panel: No Data to Display Thyroid Panel: No Data to Display Infectious Disease: No Data to Display Blood Cultures: No Data to Display Toxicology Panel: No Data to Display Anesthesia Assessment and Plan Anesthesia History Personal History: No History of Anesthesia Complications Family History: No Family History of Anesthesia Complications Exercise Tolerance Exercise Tolerance: Metabolic Equivalents>4 Pertinent Negatives Pertinent Negatives: No Symptoms of GERD, No Major Cardiovascular Symptoms or Complaints and No Major Pulmonary Symptoms or Complaints Cardiac & Pulmonary Exam Cardiac Exam: Normal S1/S2 Heart Sounds Pulmonary Exam: Clear Bilateral Breath Sounds Implantable Cardiac Device Does patient have a Pacemaker or an ICD?: No Airway Exam Known Difficult Airway: No Mallampati Class: 2 Mouth Opening: Normal (> 3cm) Thyromental Distance: Greater than 3 cm Neck Range of Motion: Full ROM Neck Circumference: Normal Teeth Condition: Normal Dentition ASA Classification ASA Score: ASA 2 Emergency Case?: No NPO Status NPO Status: NPO Clears >2 hours, Solids >8 hours Anesthesia Plan Resuscitation Status: Full Code Anesthesia Technique: MAC Anesthesia Airway Planned: Natural Airway Monitors Used: Standard Monitors
[2022-12-15 12:47] VITALS: BMI 32.8
[2022-12-15] MEDS: Balanced Salt Soln.-PLUS 500 ML BAG OP (12:49)
[2022-12-15] MEDS: Tetracaine 0.5% 4 ML BTL OD (12:50)
[2022-12-15] MEDS: Duovisc Viscoelastic System EACH 1 EACH (12:51)
[2022-12-15] MEDS: Lidocaine 1% Pres-Free 5 ML VIAL (12:52)
[2022-12-15] MEDS: Phenylephrine/Lidocaine (15/10) MG/ML 1 ML VIAL (12:54)
[2022-12-15] MEDS: Povidone-Iodine Ophth 30 ML BTL (12:55)
[2022-12-15 13:04] VITALS: BP 130/72; PULSE 70; RESP 18; TEMP 36.4; O2SAT 100
--- NOTE | 2022-12-15 13:07 | W.PM.DSUDISC ---
Date of service: 12/15/22 Time of Service: 13:07 Discharge Plan Disposition Patient Disposition: Home Discharge Details Attending Provider: Kirill Tavarez Primary Care Provider: Lucia Lynch Home Meds and New Rx's Prescriptions: No Action irbesartan 150 mg tablet 150 mg PO DAILY lorazepam [Ativan] 0.5 MG tablet 0.5 mg PO PRN zolpidem [Ambien CR] 12.5 MG tablet,ext release multiphase 6.25 mg PO DAILY escitalopram oxalate 10 mg tablet 10 mg PO DAILY Hold Instructions: Pt Stopped/Never Started ccuquhp-ghjvqtcra-ciun 333-133-8.3 mg tablet 1 tab PO DAILY cholecalciferol (vitamin D3) 25 mcg (1,000 unit) capsule 25 mcg PO DAILY Hold Instructions: Changed by Provider amlodipine 5 mg tablet 20 mg PO DAILY Patient Comments: Take 1 tablet by mouth once a day atorvastatin 20 mg tablet 20 mg PO DAILY Patient Comments: Take 1 tablet by mouth once a day Discharge Instructions Stand Alone Forms: Post-op Topical Cataract, Reggie Montano (DSU) Discharge Orders Discharge Orders: Discharge Order (Routine); Ordered 12/15/22 Ordered By: Kirill Tavarez DS: Diagnosis Discharge Diagnosis (1) Nuclear age-related cataract, right eye: Status: Resolved (2) Cortical age-related cataract, right eye: Status: Resolved
--- NOTE | 2022-12-15 13:08 | W.PM.OP ---
Date of service: 12/15/22 Time of Service: 13:08 Operative Note Operative Note DATE OF PROCEDURE: 12/15/22 PRE-OP DIAGNOSIS: Nuclear/cortical cataract, right eye POST-OP DIAGNOSIS: same PROCEDURE: Cataract extraction using phacoemulsification with intraocular lens implant, right eye SURGEON: Kirill Tavarez ANESTHESIA TYPE: Local By Surgeon and MAC Refer to Anesthesia Record ESTIMATED BLOOD LOSS: 0 PATHOLOGY: none sent COMPLICATIONS: None Patient was transported to: same day Patient's condition: stable Implants: Zain Clareon [id number] Indications: Progressive decreased vision due to cataract, right eye Procedure Description: CATARACT SURGERY OPERATIVE REPORT PREOPERATIVE DIAGNOSIS: Nuclear/cortical cataract, right eye POSTOPERATIVE DIAGNOSIS: Same OPERATION: Cataract extraction using phacoemulsification with posterior chamber intraocular lens implant, right eye. IOL: IOL Tire Spotter/Model: Zain Clareon [id number] IOL Power: + 25.0 diopters IOL Serial Number: [id number] Optic Diameter: 6.0mm Haptic/Overall Diameter: 13.0mm PHACO INFO: ZainAdlibrium Incurion Vision System with OZil and Active Fluidics Cumulative Dispersed Energy (CDE): 5.58 seconds SURGEON: Kirill Tavarez MD, SILVERIO ANESTHESIA: Monitored Anesthesia Care (MAC), with local sub-tenon's anesthetic infiltration COMPLICATIONS: None SPECIMENS: None INDICATIONS FOR PROCEDURE: The patient is a 72-year-old lady with history of diminished visual acuity in her right eye secondary to the development of nuclear/cortical cataract. She is significantly symptomatic that she desires cataract surgery and attempt to improve and maximize her vision. The option of cataract surgery was offered to the patient and she wished to proceed. See office notes for detailed information. PROCEDURE: The correct surgical eye was identified and marked as the right eye and the pupil was dilated in the preoperative area using mydriatics and cycloplegics. The dilated pupil size was 7.0 mm. Oral sedation was administered in the form of an Imprimis MKO Melt (midazolam 3mg/ketamine 25mg/ondansetron 2mg). . The patient was brought to the operating room where cardiopulmonary monitoring was instituted and surgical time-out was performed, confirming the correct operative eye and IOL power. Topical anesthesia was administered and ophthalmic povidone-iodine 5% was instilled into the conjunctival fornices. The carmelina-ocular area was prepped with Betadine 10% solution and draped in the usual sterile fashion for intraocular surgery, including an aperture drape. A Tegaderm transparent film dressing was cut in half and used to cover the lashes and lid margins. Care was taken to sequester the lashes and lid margins under the Tegaderm dressing. A lid speculum was placed between the lids of the operative eye and the Sudha-Soheila operating microscope was maneuvered into position. Josselyn scissors were then used to make a conjunctival buttonhole approximately 6mm posterior to the limbus in the inferonasal quadrant. Blunt dissection was carried out to expose bare sclera, and a blunt-tipped sub-tenon?s anesthesia cannula was introduced and passed posteriorly along the globe where non-preserved plain lidocaine was injected into posterior sub-Tenon?s space. A sideport knife was used to make a paracentesis port. Intraocular phenylephrine/lidocaine was injected into the anterior chamber. The anterior chamber was then filled with viscoelastic. A keratome knife was used to construct a two--plane clear corneal tunnel extending 2.0mm into clear cornea. A flap was raised on the anterior capsule and capsulorhexis forceps were used to complete a continuous curvilinear capsulorhexis of 5.5 mm. Balanced salt solution was then used to perform cortical cleaving hydrodissection and nuclear hydrodelineation until the lens could be freely rotated within the capsular bag. The lens nucleus was then disassembled and removed within the capsular bag and iris plane using phacoemulsification. Residual cortical material was removed using the I/A handpiece. The posterior capsule was carefully polished to remove as much residual lens epithelial cells as safely possible. The capsular bag was then inflated and the anterior chamber deepened with cohesive viscoelastic. The lens implant described above was inserted into the capsular bag using the Zain Autonome Injector. A Kuglen hook was used to dial the IOL into position. Residual viscoelastic was then removed first from posterior to the IOL, then from the anterior chamber using the I/A handpiece. The lens implant was noted to center nicely within the capsular bag. The incisions were stromally hydrated, and the anterior chamber was reformed using BSS. Then 0.5cc of moxifloxacin 1.0mg/ml were injected into the capsular bag and anterior chamber. The incisions were checked with a Weck spear and found to be secure. Several drops of ophthalmic povidone-iodine 5% were then applied to the eye followed by two drops of Imprimis combination prednisolone/moxifloxacin/nepafenac solution. The drapes were removed and a clear plastic protective eye shield was placed over the eye. The patient was then returned to Same Day Surgery in stable condition.
[2022-12-15 13:24] VITALS: BP 126/79; PULSE 59; RESP 18; TEMP 36.4; O2SAT 97
--- NOTE | 2022-12-15 13:28 | W.ANESPOSTOP ---
Postoperative Evaluation Date, Time and Location Date Performed: 12/15/22 Time Performed: 13:28 Patient Location: Day Surgery Unit Vital Signs Most Recent Imported Vital Signs: Most Recent Vital Signs Temp Pulse Resp BP Pulse Ox 36.4 C L 70 18 130/72 100 12/15/22 13:04 12/15/22 13:04 12/15/22 13:04 12/15/22 13:04 12/15/22 13:04 Pain Score Most Recent Pain Score: Most Recent Pain Score Pain Level 0 12/15/22 13:04 Assessment Mental Status: Awake (Alert & Oriented to Patient Baseline) Airway and Respiratory Function: Patent airway with normal (patient baseline) respiratory exam Cardiovascular Function: Hemodynamically Stable Hydration Status: Adequately Hydrated Nausea & Vomiting: No Nausea or Vomiting Pain: Pt. Denies Any Pain Peripheral Nerve Block: Patient did not receive a nerve block
== END 2022-12-15 13:34 | disposition home or self-care (01) ==
LOC: SUR 10:25
PROVIDERS: PCP Family Medicine; Visit Provider Ophthalmology
PROC: (CPT 66984; principal; 2022-12-15 14:00)
DX: H25.11 Age-related nuclear cataract, right eye (principal); H25.011 Cortical age-related cataract, right eye; G47.33 Obstructive sleep apnea (adult) (pediatric); I10 Essential (primary) hypertension
CPT/HCPCS: 66984; 00123; V2632

== ENCOUNTER 2022-12-29 08:50 | Day surgery (SDC) | payer MEDICARE, BC, SELFPAY ==
[2022-12-29 09:00] VITALS: BP 145/90; PULSE 76; RESP 18; TEMP 36.2; O2SAT 99
[2022-12-29] MEDS: Tropicam./Phenyleph. (1/2.5%) 5 ML BTL OS ×3 (09:09→09:27)
[2022-12-29 09:19] VITALS: BP 145/90; PULSE 76; RESP 18; TEMP 36.2; O2SAT 99
--- NOTE | 2022-12-29 09:36 | ANES.PREOP_ITS ---
General Info Date of Service Date Performed: 12/22/22 Height: 5 ft Weight: 75.1 kg Body Mass Index (BMI): 32.3 Surgical Procedure: Operation Date: 12/29/22 11:40 Proposed Procedure Side Surgeon p Cataract Extraction with IOL Implant Left Kirill Tavarez MD Meds Allergies and Home Medications Allergies Allergy/AdvReac Type Severity Reaction Status Date / Time pomegranate Allergy Severe Throat Verified 12/29/22 09:07 closes estradiol patch AdvReac Intermediate burn Uncoded 12/29/22 09:07 Home Medication Medication Instructions Recorded Ambien CR 12.5 mg tablet,extended 6.25 mg PO DAILY 01/13/13 release (zolpidem) Ativan 0.5 mg tablet (lorazepam) 0.5 mg PO PRN 01/13/13 nafdirj-mfmfbqzmn-ordn 333 mg-133 1 tab PO DAILY 09/29/21 mg-8.3 mg tablet cholecalciferol (vitamin D3) 25 25 mcg PO DAILY 09/29/21 mcg (1,000 unit) capsule irbesartan 150 mg tablet 150 mg PO DAILY 11/23/21 amlodipine 5 mg tablet 20 mg PO DAILY 12/13/22 atorvastatin 20 mg tablet 20 mg PO DAILY 12/13/22 Current Visit Medications: Current Medications Generic Name Dose Route Start Last Admin Trade Name Freq PRN Reason Stop Dose Admin Acetaminophen 1,000 mg 12/29/22 06:00 Acetaminophen 500 Mg Tab PO 01/28/23 05:59 Q4H PRN PRN Balanced Salt Solution 500 ml 12/29/22 06:00 Balanced Salt Soln.-Plus 500 Ml Bag OP 01/28/23 05:59 DIRECTED [facility] Miscellaneous Medication 0 ml 12/29/22 06:00 12/29/22 09:27 Tropicam./Phenyleph. (1/2.5%) 5 Ml Btl OS 01/28/23 05:59 1 drp DIRECTED [facility] Administration Miscellaneous Medication 0 ml 12/29/22 06:00 Prednisolone 1%, Moxifloxacin 0.5%, Bromfenac 0.09% 5ml Btl OS 01/28/23 05:59 DIRECTED [facility] Tetracaine HCl 0 ml 12/29/22 06:00 Tetracaine 0.5% 4 Ml Btl OS 01/28/23 05:59 DIRECTED [facility] PFSH Active Problems Active Problems: Problem Status Onset Code Cortical age-related cataract, left eye H25.012 Nuclear age-related cataract, right eye H25.11 Cortical age-related cataract, right eye H25.011 Nuclear age-related cataract, left eye H25.12 Screening for colon cancer Z12.11 Memory deficit R41.3 Left shoulder pain M25.512 Benign essential hypertension I10 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 Abnormal mammogram R92.8 Left hip pain M25.552 Obesity E66.9 Medical History Medical History Pain, joint, shoulder, left YULISA (obstructive sleep apnea) Vitamin D deficiency Hypertension Tubular adenoma of colon (10/03/16) Fibrocystic breast disease Chronic insomnia Seborrheic keratoses Menopausal syndrome (hot flashes) Osteopenia Insomnia Surgical History Surgical History History of cataract surgery Colonoscopy - MAC (10/03/16) Tobacco Smoking/Tobacco Use Status: Former Tobacco Use Alcohol Alcohol Intake: current Alcohol intake frequency: holidays/special occasions only Alcohol type: hard liquor Substance Use Substance use: Never Substance use type: does not use Vital Signs and Lab Results Vital Signs Most Recent Vital Signs in EMR: Most Recent Vital Signs Temp Pulse Resp BP Pulse Ox 36.2 C L 76 18 145/90 H 99 12/29/22 09:19 12/29/22 09:19 12/29/22 09:19 12/29/22 09:19 12/29/22 09:19 Lab Results Blood Type / Crossmatch: No Data to Display Complete Blood Count: No Data to Display Complete Metabolic Panel: No Data to Display Liver Function Panel: No Data to Display Coagulation Panel: No Data to Display Cardiac Panel: No Data to Display Arterial Blood Gas: No Data to Display Venous Blood Gas: No Data to Display Pancreas Panel: No Data to Display Thyroid Panel: No Data to Display Infectious Disease: No Data to Display Blood Cultures: No Data to Display Toxicology Panel: No Data to Display Anesthesia Assessment and Plan Anesthesia History Personal History: No History of Anesthesia Complications Family History: No Family History of Anesthesia Complications Exercise Tolerance Exercise Tolerance: Metabolic Equivalents>4 Pertinent Negatives Pertinent Negatives: No Symptoms of GERD Cardiac & Pulmonary Exam Cardiac Exam: Normal S1/S2 Heart Sounds Pulmonary Exam: Clear Bilateral Breath Sounds Implantable Cardiac Device Does patient have a Pacemaker or an ICD?: No Airway Exam Known Difficult Airway: No Mallampati Class: 2 Mouth Opening: Normal (> 3cm) Thyromental Distance: Greater than 3 cm Neck Range of Motion: Full ROM Neck Circumference: Normal Teeth Condition: Normal Dentition ASA Classification ASA Score: ASA 2 Emergency Case?: No NPO Status NPO Status: NPO Clears >2 hours, Solids >8 hours Anesthesia Plan Resuscitation Status: Full Code Anesthesia Technique: MAC Anesthesia Airway Planned: Natural Airway Monitors Used: Standard Monitors
[2022-12-29 09:37] VITALS: BMI 32.3
[2022-12-29] MEDS: Balanced Salt Soln.-PLUS 500 ML BAG OP (10:20)
[2022-12-29] MEDS: Tetracaine 0.5% 4 ML BTL OS (10:22)
[2022-12-29] MEDS: Duovisc Viscoelastic System EACH 1 EACH (10:22)
[2022-12-29] MEDS: Lidocaine 1% Pres-Free 5 ML VIAL (10:23)
[2022-12-29] MEDS: Phenylephrine/Lidocaine (15/10) MG/ML 1 ML VIAL (10:25)
[2022-12-29] MEDS: Povidone-Iodine Ophth 30 ML BTL (10:25)
--- NOTE | 2022-12-29 10:36 | W.PM.DSUDISC ---
Date of service: 12/29/22 Time of Service: 10:36 Discharge Plan Disposition Patient Disposition: Home Discharge Details Attending Provider: Kirill Tavarez Primary Care Provider: Lucia Lynch Home Meds and New Rx's Prescriptions: No Action irbesartan 150 mg tablet 150 mg PO DAILY lorazepam [Ativan] 0.5 MG tablet 0.5 mg PO PRN zolpidem [Ambien CR] 12.5 MG tablet,ext release multiphase 6.25 mg PO DAILY mlkngnu-veraoztis-kfzn 333-133-8.3 mg tablet 1 tab PO DAILY cholecalciferol (vitamin D3) 25 mcg (1,000 unit) capsule 25 mcg PO DAILY Hold Instructions: Changed by Provider amlodipine 5 mg tablet 20 mg PO DAILY Patient Comments: Take 1 tablet by mouth once a day atorvastatin 20 mg tablet 20 mg PO DAILY Patient Comments: Take 1 tablet by mouth once a day Discharge Instructions Stand Alone Forms: Post-op Topical Cataract, Reggie Montano (DSU) Discharge Orders Discharge Orders: Discharge Order (Routine); Ordered 12/29/22 Ordered By: Kirill Tavarez DS: Diagnosis Discharge Diagnosis (1) Cortical age-related cataract, left eye: Status: Resolved (2) Nuclear age-related cataract, left eye: Status: Resolved
[2022-12-29 10:37] VITALS: BP 152/73; PULSE 66; RESP 20; TEMP 36.7; O2SAT 100
--- NOTE | 2022-12-29 10:37 | ROE_ITS ---
Date of service: 12/29/22 Time of Service: 10:37 Operative Note Operative Note DATE OF PROCEDURE: 12/29/22 PRE-OP DIAGNOSIS: Nuclear/cortical cataract, left eye POST-OP DIAGNOSIS: same PROCEDURE: Cataract extraction using phacoemulsification with intraocular lens implant, left eye SURGEON: Kirill Tavarez ANESTHESIA TYPE: Local By Surgeon and MAC Refer to Anesthesia Record PATHOLOGY: none sent COMPLICATIONS: None Patient was transported to: same day Patient's condition: stable Implants: Zain Clareon [id number] Indications: Progressive decreased vision due to cataract, left eye Procedure Description: CATARACT SURGERY OPERATIVE REPORT PREOPERATIVE DIAGNOSIS: Nuclear/cortical cataract, left eye POSTOPERATIVE DIAGNOSIS: Same OPERATION: Cataract extraction using phacoemulsification with posterior chamber intraocular lens implant, left eye. IOL: IOL [employer] Service Officer/Model: Zain Clareon [id number] IOL Power: + 26.5 diopters IOL Serial Number: [id number] Optic Diameter: 6.0mm Haptic/Overall Diameter: 13.0mm PHACO INFO: Zain Activ Technologiesurion Vision System with OZil and Active Fluidics Cumulative Dispersed Energy (CDE): 8.28 seconds SURGEON: Kirill Tavarez MD, SILVERIO ANESTHESIA: Monitored Anesthesia Care (MAC), with local sub-tenon's anesthetic infiltration COMPLICATIONS: None SPECIMENS: None INDICATIONS FOR PROCEDURE: Patient is a 72-year-old lady with history of diminished visual acuity in her left eye secondary to the development of nuclear/cortical cataract. She has a history of high hyperopia. She has already undergone cataract surgery in the right eye and is doing well postoperatively. She now presents for cataract surgery in the left eye. See office notes for detailed information. PROCEDURE: The correct surgical eye was identified and marked as the left eye and the pupil was dilated in the preoperative area using mydriatics and cycloplegics. The dilated pupil size was 7.0 mm. The patient elected to proceed without oral sedation. The patient was brought to the operating room where cardiopulmonary monitoring was instituted and surgical time-out was performed, confirming the correct operative eye and IOL power. Topical anesthesia was administered and ophthalmic povidone-iodine 5% was instilled into the conjunctival fornices. The carmelina-ocular area was prepped with Betadine 10% solution and draped in the usual sterile fashion for intraocular surgery, including an aperture drape. A Tegaderm transparent film dressing was cut in half and used to cover the lashes and lid margins. Care was taken to sequester the lashes and lid margins under the Tegaderm dressing. A lid spec ulum was placed between the lids of the operative eye and the Zain LuxOR Revalia operating microscope was maneuvered into position. Josselyn scissors were then used to make a conjunctival buttonhole approximately 6mm posterior to the limbus in the inferonasal quadrant. Blunt dissection was carried out to expose bare sclera, and a blunt-tipped sub-tenon?s anesthesia cannula was introduced and passed posteriorly along the globe where non- preserved plain lidocaine was injected into posterior sub-Tenon?s space. A sideport knife was used to make a paracentesis port. Intraocular phenylephrine/lidocaine was injected into the anterior chamber. The anterior chamber was then filled with viscoelastic. A keratome knife was used construct a two-plane clear corneal tunnel extending 2.0mm into clear cornea. A flap was raised on the anterior capsule and capsulorhexis forceps were used to complete a continuous curvilinear capsulorhexis of 5.0 mm. Balanced salt solution was then used to perform cortical cleaving hydrodissection and nuclear hydrodelineation until the lens could be freely rotated within the capsular bag. The lens nucleus was then disassembled and removed within the capsular bag and iris plane using phacoemulsification. Residual cortical material was removed using the irrigation/aspiration handpiece. The posterior capsule was carefully polished to remove as much residual lens epithelial cells as safely possible. The capsular bag was then inflated and the anterior chamber deepened with viscoelastic. The phaco incision was enlarged slightly to accommodate the larger injector tip. The lens implant described above was inserted into the capsular bag using the Zain Autonome Injector. A Kuglen hook was used to dial the IOL into position. Residual viscoelastic was then removed first from posterior to the IOL, then from the anterior chamber using the I/A handpiece. The lens implant was noted to center nicely within the capsular bag. The incisions were stromally hydrated, and the anterior chamber was reformed using BSS. Then 0.5cc of moxifloxacin 1.0mg/ml were injected into the capsular bag and anterior chamber. The incisions were checked with a Weck spear and found to be secure. Several drops of ophthalmic povidone-iodine 5% were then applied to the eye followed by two drops of Imprimis combination prednisolone/moxifloxacin/nepafenac solution. The drapes were removed and a clear plastic protective eye shield was placed over the eye. The patient was then returned to Same Day Surgery in stable condition.
--- NOTE | 2022-12-29 10:53 | W.ANESPOSTOP ---
Postoperative Evaluation Date, Time and Location Date Performed: 12/29/22 Time Performed: 10:53 Patient Location: Day Surgery Unit Vital Signs Most Recent Imported Vital Signs: Most Recent Vital Signs Temp Pulse Resp BP Pulse Ox 36.7 C 66 20 152/73 H 100 12/29/22 10:37 12/29/22 10:37 12/29/22 10:37 12/29/22 10:37 12/29/22 10:37 Pain Score Most Recent Pain Score: Most Recent Pain Score Pain Level 0 12/29/22 10:37 Assessment Mental Status: Awake (Alert & Oriented to Patient Baseline) Airway and Respiratory Function: Patent airway with normal (patient baseline) respiratory exam Cardiovascular Function: Hemodynamically Stable Hydration Status: Adequately Hydrated Nausea & Vomiting: No Nausea or Vomiting Pain: Pt. Denies Any Pain Peripheral Nerve Block: Patient did not receive a nerve block
== END 2022-12-29 10:54 | disposition home or self-care (01) ==
LOC: SUR 08:50
PROVIDERS: PCP Family Medicine; Visit Provider Ophthalmology
PROC: (CPT 66984; principal; 2022-12-29 11:30)
DX: H25.012 Cortical age-related cataract, left eye (principal); H25.12 Age-related nuclear cataract, left eye; I10 Essential (primary) hypertension; Z98.41 Cataract extraction status, right eye
CPT/HCPCS: 66984; 00123; V2632

== ENCOUNTER 2023-02-16 15:26 | Outpatient (REF) | payer MEDICARE, BC, SELFPAY ==
[2023-02-19 09:30] LABS: Cyclic Citrullinated Peptide <2.5 U/mL (<5.0)
[2023-02-19 16:05] LABS: ANA Interpretation Negative (Negative)
== END 2023-02-16 15:27 | disposition home or self-care (01) ==
LOC: NCHCN 15:26
PROVIDERS: PCP Family Medicine; Visit Provider Family Medicine
DX: M46.1 Sacroiliitis, not elsewhere classified (principal)
CPT/HCPCS: 86200; 86038

== ENCOUNTER 2023-03-07 15:20 | Outpatient (REF) | payer MEDICARE, BC, SELFPAY ==
[2023-03-07 15:23] LABS: Bilirubin Negative (Negative); Blood Trace-intact (Negative); Clarity Cloudy (Clear); Glucose Negative (Negative); Ketones Negative (Negative); Leukocyte Esterase Negative (Negative); Nitrite Negative (Negative); Specific Gravity 1.025 (1.005-1.025); Urobilinogen 0.2 mg/dL (Up to 0.2); pH 5.5 (5-8)
[2023-03-07 15:27] LABS: RBC 0-2 HPF (0-2); WBC Negative HPF (0-5)
[2023-03-07 15:28] LABS: Bacteria Moderate HPF (Negative); C & S Indicated? No; Casts Negative LPF (Negative); Crystals Negative HPF (Negative); Epithelial Cells Rare HPF (Negative); Mucus Negative (Negative)
== END 2023-03-07 15:21 | disposition home or self-care (01) ==
LOC: NCHCN 15:20
PROVIDERS: PCP Family Medicine; Visit Provider Family Medicine
DX: R35.0 Frequency of micturition (principal)
CPT/HCPCS: 81003; 81015

== ENCOUNTER → 2023-03-09 00:31 | Outpatient (CLI) | payer MEDICARE, BC, SELFPAY ==
--- NOTE | 2023-03-09 | DI.DEXA_ITS ---
Exam(s) XR DEXA BONE DENSITY W/WO COLBY EXAM: XR DEXA BONE DENSITY W/WO COLBY CLINICAL HISTORY: OSTEOPENIA M85.88 TECHNIQUE: HoloJumo Horizon C densitometer analysis of left hip, lumbar spine and left forearm. Lat eral survey image of the thoracic and lumbar spine. COMPARISON: DX XR DEXA BONE DENSITY W/WO COLBY from 01/22/2018 FINDINGS: Lateral view of the thoracic and lumbar spine shows no evidence of compression fractures. Bone mineral density measurements of the lumbar spine correspond to a total T-score of -0.9, in the normal range. This represents a 4.5 percent increase compared with 2018 Bone mineral density measurements of the left hip correspond to a total T-score of -1.0, not signific antly changed from prior . The femoral neck T-score is -1.5, in the osteopenic range.. Theleft forearm bone mineral density measurements correspond to a T-score of the distal 3rd of -0.9, in the normal range.. IMPRESSION: Normal bone mineral density of the forearm and spine. Osteopenia of the hip.
--- NOTE | 2023-03-09 15:18 | DI.MAMMO_ITS ---
Exam(s) MAMMO SCREENING EXAM: MAMMO SCREENING CLINICAL HISTORY: SCREENING MAMMO FOR BREAST CANCER Z12.31 TECHNIQUE: Mammograms were interpreted according to the usual protocol including computer analysis w [employer] CAD system, tomosynthesis and C-view imaging. COMPARISON: 2013 through 2022 FINDINGS: The breasts are composed of heterogeneously dense fibroglandular densities, Breast Density category C . No suspicious masses or suspicious microcalcifications are seen. No skin thickening or abnormal axillary lymph nodes are seen. There has been no significant change from prior exams. IMPRESSION: BI-RADS Category 1, Negative mammogram. Yearly screening mammography is recommended. Breast Density Category C, heterogeneously Dense. The mammogram demonstrates the patient's breast tissue is dense. Dense breast tissue is very common a nd is not abnormal but dense breast tissue can make it harder to find cancer on a mammogram. Also, de nse breast tissue may increase breast cancer risk. This information about the result of the mammogram report was provided to the patient to raise their awareness. Use this report when you speak with the patient about their risks for breast cancer, which includes their family history. At that time, you may recommend additional screening tests (Ultrasound or MRI) as they might be useful based on their r isk. A negative radiographic report should not delay biopsy if a dominant or clinically suspicious mass is present. Up to ten percent of cancers are not identified on mammography. A negative report may reinforce clinical impression. Adenosis and dense breasts may obscure an underlying neoplasm. False positive reports average 6 to 10%.
== END ==
PROVIDERS: PCP Family Medicine; Visit Provider Family Medicine
DX: M85.88 Other specified disorders of bone density and structure, other site (principal); Z12.31 Encounter for screening mammogram for malignant neoplasm of breast; Z13.820 Encounter for screening for osteoporosis
CPT/HCPCS: 77063; 77067; 77080

== ENCOUNTER 2023-03-12 18:30 | Outpatient (REF) | payer MEDICARE, BC, SELFPAY ==
[2023-03-12 16:24] LABS: TSH (W/Ref FT4) 2.66 uIU/mL (0.36-3.74)
== END 2023-03-12 18:31 | disposition home or self-care (01) ==
LOC: NCHCN 18:30
PROVIDERS: PCP Family Medicine; Visit Provider Family Medicine
DX: R61 Generalized hyperhidrosis (principal)
CPT/HCPCS: 84443

== ENCOUNTER → 2023-06-28 03:51 | Outpatient (CLI) | payer MEDICARE, BC, SELFPAY ==
--- NOTE | 2023-06-28 14:51 | DI.RAD_ITS ---
Exam(s) XR THORACIC SPINE COMPLETE EXAM: XR THORACIC SPINE COMPLETE CLINICAL HISTORY: MID BACK PAIN, M54.9,? SYNDESMOPHYTES. TECHNIQUE: 2D digital imaging was performed of the thoracic spine. Views were obtained. AP, swimm er's and lateral views were obtained. COMPARISON: No exams were available for comparison FINDINGS: BONES: There is no fracture or destructive lesion. Endplate osteophytes are seen at multiple levels i n the thoracic spine. The findings are most marked in the midthoracic spine. DISKS:There is a mild right convex curvature of the thoracic spine. There is disc space narrowing an d endplate osteophytes at multiple levels throughout the thoracic spine. SOFT TISSUE: Visualized lungs are clear. IMPRESSION: Moderate degenerative changes in the thoracic spine. DATA REPOSITORY: RADIATION DOSE DELIVERED:
--- NOTE | 2023-06-28 14:51 | DI.RAD_ITS ---
Exam(s) XR CERVICAL SPINE COMP 4-5V EXAM: XR CERVICAL SPINE COMP 4-5V CLINICAL HISTORY: NECK PAIN, ? SYNDESMOPHYTES,M54.2. TECHNIQUE: 2D digital imaging was performed. Five images were obtained. AP, odontoid, lateral, flexi on and extension images were obtained. COMPARISON: No exams were available for comparison FINDINGS: The odontoid is intact. The lateral masses are well aligned. There is normal alignment of the cervi nelda spine. There is disc space narrowing at C5-6 and C6-C7. Endplate osteophytes are seen throughout the cervical spine with sparing at C2-3. The findings are most marked at C6-C7. The facet joints s how hypertrophic changes. No acute fracture or subluxation is present. No significant subluxation is seen with flexion or extension. The cervical thoracic junction is well maintained. The prevertebra l soft tissues are unremarkable. Lung apices are clear. IMPRESSION: Moderate cervical spondylosis. DATA REPOSITORY: RADIATION DOSE DELIVERED:
== END ==
PROVIDERS: PCP Family Medicine; Visit Provider Student in an Organized Health Care Education/Training Program
DX: M47.812 Spondylosis without myelopathy or radiculopathy, cervical region (principal); M51.34 Other intervertebral disc degeneration, thoracic region
CPT/HCPCS: 72050; 72072

== ENCOUNTER → 2023-07-11 03:51 | Outpatient (CLI) | payer MEDICARE, BC, SELFPAY ==
--- NOTE | 2023-07-11 08:30 | DI.MRI_ITS ---
Exam(s) MR PELVIS WO EXAM: MR PELVIS WO CLINICAL HISTORY: LOW BACK PAIN, ? SACROILITIS/BONY EROSIONS M46.1 TECHNIQUE: Multiplanar multisequence MRI of Pelvis was performed. CONTRAST MATERIAL: Noncontrast COMPARISON: CR XR HIP RT COMPLETE AP PELVIS from 10/30/2022 CR XR DEXA BONE DENSITY W/WO COLBY from 03/09/2023 FINDINGS: Bones: There is no fracture or contusion pattern. Mild asymmetric edema on both sides of the right SI joint. There is sclerosis at the right ilium adjacent to the SI joint as seen on previous plain f ilms. There is mild spurring of the SI joints. No visible bony erosions. A nerve root sheath cyst is noted on the right at the S1 level. Intrapelvic structures demonstrate no significant abnormality. IMPRESSION: Sclerosis at the right ilium adjacent to the SI joint. Minimal marrow edema on both sides of the rig ht SI joint and periarticular spurring. No visible bony erosions. DATA REPOSITORY:
== END ==
PROVIDERS: PCP Family Medicine; Visit Provider Student in an Organized Health Care Education/Training Program
DX: M46.1 Sacroiliitis, not elsewhere classified (principal)
CPT/HCPCS: 72195

== ENCOUNTER 2024-03-24 11:38 | Outpatient (CLI) | payer MEDICARE, BC, SELFPAY ==
[2024-03-24 16:54] LABS: ALT 47 U/L (14-59); AST 21 U/L (15-37); Albumin 4.1 g/dL (3.4-5.0); Alkaline Phosphatase 83 U/L (46-116); Anion Gap 6.2 mmol/L (3-11); BUN 17 mg/dL (7-18); Bilirubin, Total 0.36 mg/dL (0.2-1.0); CO2 30.8 mmol/L (21.0-32.0); CREATININE 0.9 mg/dL (0.55-1.02); Calcium 9.6 mg/dL (8.5-10.1); Chloride 104 mmol/L (98-107); Estimated GFR 67.92 (mL/min/1.73m2); Glucose 95 mg/dL (74-106); Sodium 141 mmol/L (136-145); Total Protein 7.7 g/dL (6.4-8.2)
== END 2024-03-24 11:39 | disposition home or self-care (01) ==
LOC: LBO 11:39
PROVIDERS: PCP Family Medicine; Visit Provider Family Medicine
DX: I10 Essential (primary) hypertension (principal)
CPT/HCPCS: 36415; 80053

== ENCOUNTER 2024-04-03 00:45 | Outpatient (CLI) | payer MEDICARE, BC, SELFPAY ==
--- NOTE | 2024-04-03 | DI.MAMMO_ITS ---
Exam(s) MAMMO SCREENING EXAM: MAMMO SCREENING CLINICAL HISTORY: SCREENING MAMMO Z12.31 TECHNIQUE: Bilateral full field digital CC and MLO mammographic images were obtained with 3D tomosyn thesis and utilizing computer aided detection (CAD). COMPARISON: Available for comparison. FINDINGS: Masses/Architectural Distortion: No suspicious nodules or areas of architectural distortion are prese nt.: Microcalcifications: No suspicious pleomorphic-type are seen. Skin Thickening/Nipple Retraction: None. IMPRESSION: 1. No significant interval change with no specific features of malignancy noted. 2. Unless there is more urgent need, screening mammography is recommended, as per [employer] guidelines. BI-RADS Category 1 - Negative Breast Density - Category C - Heterogeneously dense Breast density category C or D implies that the patient has dense breast tissue. Dense breast tissue is very common and is not abnormal but dense breast tissue can make it harder to find cancer on a ma mmogram. Also, dense breast tissue may increase their breast cancer risk. This information about the result of the mammogram report was provided to the patient to raise their awareness. Use this report when you speak with the patient about their risks for breast cancer, which includes their family hist ory. At that time, you may recommend for more screening tests (Ultrasound or MRI) as they might be us eful based on their risk. A negative radiographic report should not delay biopsy if a dominant or clinically suspicious mass is present. Up to ten percent of cancers are not identified on mammography. A negative report may reinforce clinical impression. Adenosis and dense breasts may obscure an underlying neoplasm. False positive reports average 6 to 10%. Patient will receive a letter notifying them of these results.
== END 2024-04-03 01:05 ==
LOC: DI 00:45
PROVIDERS: PCP Family Medicine; Visit Provider Family Medicine
DX: Z12.31 Encounter for screening mammogram for malignant neoplasm of breast (principal); R92.333 Mammographic heterogeneous density, bilateral breasts
CPT/HCPCS: 77063; 77067